=== PATIENT | male | born 1995 | race Caucasian/White ===

== ENCOUNTER 2018-02-07 16:58 | Emergency (ER) | payer OTHER ==
[2018-02-07] MEDS: ACETAMINOPHEN 500 MG TAB PO (19:10)
[2018-02-07 19:35] LABS: URINE BLOOD (Dip) POC Negative (NEGATIVE); URINE GLUCOSE (Dip) POC Negative (NEGATIVE); URINE KETONES (Dip) POC 1+ (NEGATIVE); URINE LEUKOCYTE EST (Dip) POC Negative (NEGATIVE); URINE NITRITE (Dip) POC Negative (NEGATIVE); URINE TOTAL PROTEIN POC 2+ (NEGATIVE)
[2018-02-07] MEDS ORDERED: IBUPROFEN 200 MG TAB (21:28)
== END 2018-02-07 21:35 | disposition home or self-care (01) ==
LOC: FTE 16:58
DX: R50.9 Fever, unspecified (principal); F17.210 Nicotine dependence, cigarettes, uncomplicated
CPT/HCPCS: 71045; 81003; 99283-25